=== PATIENT | female | born 1995 ===

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

== ENCOUNTER 2017-03-03 14:16 | Emergency (ER) | payer BC, OTHER ==
[2017-03-03 14:41] VITALS: BP 143/89
[2017-03-03 14:58] LABS: Hematocrit 38.9 % (37.0-47.0); Hemoglobin 12.8 gm/dL (12.5-16.0); Mean Cell Volume 83.5 fl (78-100); Mean Corpuscular Hemoglobin 27.5 pg (27-31); Mean Corpuscular Hgb Conc 32.9 g/dl (32-36); Mean Platelet Volume 9.5 fl (6.0-9.5); Neutrophil # 5.7 K/mm3 (1.3-6.0); Neutrophil % 60.1 % (42-75.0); Platelet Count 295 K/mm3 (150-450); Red Blood Count 4.66 M/mm3 (4.2-5.4); Red Cell Distribution Width 14.2 % (11.5-14.0); White Blood Count 9.5 K/mm3 (4.0-10.5)
--- NOTE | 2017-03-03 15:50 | ERNOTE ---
Back Pain ER HPI Date of Service: 03/03/17 Presenting Symptoms: injury/pain to back Time Seen by Provider: 03/03/17 15:33 Source: patient Exam Limitations: no limitations Immunizations: IMMUNIZATION HX Immunizations Up to Date Yes History of Influenza Vaccine No Hx Pneumococcal Vaccination No Allergies/Adverse Reactions: Allergies No Known Allergies Allergy (Verified 05/01/15 12:56) Home Medications: HOME MEDICATIONS Sumatriptan [Imitrex] 5 mg NS PRN PRN 05/01/15 [Last Taken Unknown] Albuterol Sulfate [Ventolin HFA] 2 puff IH Q6H PRN 7 Days inhaler 12/25/16 [ Last Taken Unknown] predniSONE [Deltasone] 20 mg PO BID #10 tablet 12/25/16 [Last Taken Unknown] Review of Systems - Review of Systems Constitutional: Present: no symptoms reported. Absent: recent illness, fever, chills, weakness, fatigue, malaise EYE: Present: no symptoms reported ENT: Present: no symptoms reported Respiratory: Present: no symptoms reported Cardiology: Present: no symptoms reported. Absent: chest pain, palpitations, edema Gastrointestinal/Abdominal: Present: no symptoms reported. Absent: nausea, vomiting, diarrhea Genitourinary: Present: no symptoms reported Musculoskeletal: Present: back pain, muscle pain - R leg and L leg pain with movement and B arms when neck palpated, neck pain Skin: Present: no symptoms reported. Absent: rash, change in color, change in hair/nails Neurological: Present: tingling - B arms and thighs occasionally. Absent: headache, dizziness/light-headedness, numbness All Other Systems: All systems neg except as marked - Patient's Past Medical History Patient History - Medical: ADHD, Headache, Other - NF-1 gene mutation Patient History - Cardiac/Respiratory: Asthma, Bronchitis Patient History - Cancer: No Hx of Cancer Patient History - Surgical Procedures: No surgical history Patient History - Other: None - Family History Mother Family History - Medical: Hypothyroidism Father Family History - Medical: ADHD, Other - Social History Living Situations: home Psych History: No pertinent hx Does anyone smoke in the home?: No Alcohol Use: none - Immunizations Immunizations Up to Date: Yes Hx Pneumococcal Vaccination: No History of Influenza Vaccine: No Physical Exam - Physical Exam General Appearance: Present: wd/wn, alert, no apparent distress Head Exam: Present: normal inspection, no evidence of injury Eye Exam: Normal inspection: bilateral Neck: Present: full range of motion, tender posterior midline - C6/7. Absent: limited range of motion, lymphadenopathy (R), lymphadenopathy (L), tender lateral Respiratory: Present: no respiratory distress, normal breath sounds, no accessory muscle use, chest nontender, lungs clear Cardiovascular/Chest: Present: regular rate, rhythm, no murmur, normal peripheral pulses Back Exam: Present: vertebral tenderness - T7/8 and L3-S1, decreased range of motion. Absent: muscle spasm Extremity Exam: Present: normal inspection, non-tender, normal range of motion, no edema Neurological Exam: Present: alert, oriented, normal mood/affect, no motor/ sensory deficits Skin Exam: Present: normal color, warm/dry. Absent: pallor, skin rash ED Progress - Date and Time Seen: Date and Time: 03/03/17 17:[address] neri Neurosurgeon at [facility] and he recommends that pt. follow up with neurologist on outpatient basis. - Results and Orders Patient's Lab Results:: I have reviewed the patient's lab results. - Vital Signs Patient's Vital Signs:: I have reviewed the patient's vital signs. Vital Signs: Vital Signs 03/03/17 14:38 Temperature 36.6 C Pulse Rate 100 Respiratory 14 Rate Blood Pressure 143/89 O2 Sat by Pulse 99 Oximetry - X-Ray X-Ray #1 X-Ray: c-spine Interpretation: Interp. by me X-ray Comments: no acute fractures or stenosis noted X-Ray #2 X-Ray: thoracic Interpretation: Interp. by me X-ray Comments: no acute fracures or stenosis noted slight mild R scoliosis curve noted X-Ray #3 X-Ray: lumbosacral Interpretation: Interp. by me X-ray Comments: no acute fractures or stenosis noted. - Progress/Reassessment Chief Complaint: Back Pain Departure Clinical Impression: Radiculopathy Qualifiers: Spinal region: cervicothoracic Qualified Code(s): M54.13 - Radiculopathy, cervicothoracic region Sciatica Qualifiers: Laterality: bilateral Qualified Code(s): M54.31 - Sciatica, right side; M54.32 - Sciatica, left side - Departure Disposition: Home self-care Condition: Good Instructions: Cervical Radiculopathy, Sciatica, [id number] Additional Instructions: Please follow up with neurology by calling office for first available appointment and follow up with roxanne denney in 2-3 days. Referrals: Roxanne Denney, [employer] SET UP OPERATOR [Primary Care Provider] -
== END 2017-03-03 17:26 | disposition home or self-care (01) ==
LOC: ER 14:16
DX: M54.13 Radiculopathy, cervicothoracic region (principal); M54.31 Sciatica, right side; M54.32 Sciatica, left side